=== PATIENT | male | born 1965 | race African-American/Black ===

== ENCOUNTER 2020-09-24 22:06 | Emergency (ER) | payer SELFPAY | END 2020-09-24 23:36 | disposition home or self-care (01) | LOC: CSHERS 22:06 | DX: R19.7 Diarrhea, unspecified (principal) | CPT/HCPCS: 99283 ==

== ENCOUNTER 2020-11-16 07:20 | Emergency (ER) | payer BC, SELFPAY | END 2020-11-16 08:09 | disposition home or self-care (01) | LOC: CSHERS 07:20 | DX: K29.70 Gastritis, unspecified, without bleeding (principal) | CPT/HCPCS: 99281 ==